=== PATIENT | female | born 1985 | race Caucasian/White ===

== ENCOUNTER 2018-09-02 17:45 | Emergency (ER) | payer OTHER ==
[2018-09-02 18:19] VITALS: BP 118/84
--- NOTE | 2018-09-02 19:35 | UC ---
Complaint Female HPI - HPI Summary HPI Summary: 2 weeks of pelvic pain and cramping along with low back pain. Denies any urinary symptoms. Feels bloated. Last sexual intercourse 3-4 days ago - unprotected. She had some postcoital spotting after that. Is in a monogamous relationship with the same male partner for several years. History of abnormal Paps and had colposcopy with biopsies about 6 weeks ago in [facility]. Today she noticed some grayish/brownish stringy vaginal discharge. Called her [facility] in [facility] and was advised that it might be Monsel's solution still being expelled. No fever. No nausea. - History Of Current Complaint Chief Complaint: UCGU Stated Complaint: PRIVATE ISSUE Time Seen by Provider: 09/02/18 19:15 Hx Obtained From: Patient Hx Last Menstrual Period: 08/15-08/19 Onset/Duration: Gradual Onset, Lasting Weeks, Still Present Timing: Constant Severity Initially: Moderate Severity Currently: Moderate Pain Intensity: 3 Pain Scale Used: 0-10 Numeric Character: Cramping Aggravating Factor(s): Nothing Alleviating Factor(s): Nothing Associated Signs And Symptoms: Positive: Back Pain, Vaginal Discharge. Negative : Fever, Nausea - Allergies/Home Medications Allergies/Adverse Reactions: Allergies Allergy/AdvReac Type Severity Reaction Status Date / Time No Known Allergies Allergy Verified 09/02/18 18:10 Home Medications: Home Medications NK [No Home Medications Reported] 09/02/18 [History Confirmed 09/02/18] PMH/Surg Hx/FS Hx/Imm Hx Previously Healthy: Yes - Surgical History Surgical History: Yes Surgery Procedure, Year, and Place: colyposcopy and cervical biopsy 2016, 2018 - Family History Known Family History: Positive: Non-Contributory - Social History Alcohol Use: Weekly Substance Use Type: Marijuana Substance Use Comment - Amount & Last Used: occasional Smoking Status (MU): Never Smoked Tobacco Review of Systems All Other Systems Reviewed And Are Negative: Yes Constitutional: Positive: Negative Respiratory: Positive: Negative Cardiovascular: Positive: Negative Gastrointestinal: Positive: Abdominal Pain Genitourinary: Positive: Negative Physical Exam Triage Information Reviewed: Yes Appearance: Well-Appearing, No Pain Distress, Well-Nourished Vital Signs: Initial Vital Signs Temp 99.7 F 09/02/18 18:11 Pulse 95 09/02/18 18:11 Resp 18 09/02/18 18:11 BP 118/84 09/02/18 18:11 Pulse Ox 100 09/02/18 18:11 Laboratory Tests 09/02/18 09/02/18 18:45 18:46 POC Urine Color Yellow POC Urine Clarity Clear POC Urine pH 8.0 POC Ur Specif [place] 1.015 POC Urine Protein Negative POC Ur Glucose (UA) Negative POC Urine Ketones Negative POC Urine Blood Negative POC Urine Nitrite Negative POC Urine Bilirubin Negative POC Urine Urobilinogen 0.2 POC U Leukocyte Esteras Negative POC Ur Test Negative Vital Signs Reviewed: Yes Eyes: Positive: Conjunctiva Clear ENT: Positive: Hearing grossly normal Neck: Positive: Supple Respiratory: Positive: No respiratory distress, No accessory muscle use Cardiovascular: Positive: Pulses Normal Abdomen Description: Positive: Nontender, Soft, Distended - MILDLY. Negative: CVA Tenderness (R), CVA Tenderness (L), Guarding Bowel Sounds: Positive: Present Pelvic Exam: Positive: External Exam Normal, Cervicitis - CERVIX FRIABLE. OOZING BLOOD AFTER LIGHT SWABBING, Discharge - THICK GREYISH DISCHARGE IN VAGINAL VAULT, Tender w/ Cervical Motion Musculoskeletal: Positive: No Edema Neurological: Positive: Alert Psychological: Positive: Age Appropriate Behavior Skin: Negative: Rashes Diagnostics - Radiology TRANSVAGINAL US Radiology Interpretation Completed By: Radiologist Summary of Radiographic Findings: In the right adnexa is a mass which measures approximate 4 cm in greatest. dimension. This mass has a hypoechoic area as well as a focal hyperechoic area. Punctate hyperechoic area with shadowing which may represent calcification. This may represent a dermoid/teratoma Complaint Female Dx - Course Course Of Treatment: CONCERN FOR PID GIVEN APPEARANCE OF DISCHARGE, FRIABLE CERVIX AND CERVICAL MOTION TENDERNESS. PT REPORTS BEING IN A MONOGAMOUS RELATIONSHIP FOR SEVERAL YEARS. IS NOT CONCERNED ABOUT STD. DECLINES EMPIRIC [place] TODAY. STATES SHE WILL ABSTAIN FROM ANY INTIMATE CONTACT. SWABBED FOR GONORRHEA, CHLAMYDIA, BV, YEAST AND TRICH. ULTRASOUND DONE AND SHOWS A POSSIBLE DERMOID/TERATOMA IN RIGHT ADNEXA. THIS IS LIKELY A SEPARATE ISSUE FROM HER CERVICITIS. REFERRAL FOR [employer] PROVIDED. - Differential Dx/Diagnosis Provider Diagnosis: Cervicitis, Teratoma Discharge - Sign-Out/Discharge Documenting (check all that apply): Patient Departure All imaging exams completed and their final reports reviewed: Yes - Discharge Plan Condition: Stable Disposition: HOME Patient Education Materials: Cervicitis (ED), Pelvic Pain in Women (ED) Referrals: Zana Roldan MD [Medical Doctor] - 2 Days Acacia Calderón MD [Medical Doctor] - 2 Days Additional Instructions: ULTRASOUND TODAY SHOWED A POSSIBLE DERMOID/TERATOMA IN YOUR RIGHT ADNEXA. THESE ARE GENERALLY BENIGN. CALL [facility] FIRST THING TOMORROW MORNING TO SCHEDULE A FOLLOW-UP APPOINTMENT TO FURTHER EVALUATE THIS FINDING. YOU WILL LIKELY BE SCHEDULED FOR MORE ADVANCED IMAGING SUCH A CT SCAN OR AN MRI. SWABS DONE TODAY TO EVALUATE FOR GONORRHEA, CHLAMYDIA, BACTERIAL VAGINOSIS, TRICHOMONAS, YEAST. YOU HAVE DECLINED PRESUMPTIVE TREATMENT FOR PID TODAY WHICH I THINK IS REASONABLE BASED ON YOUR LOW RISK HISTORY HOWEVER I WOULD RECOMMEND YOU ABSTAIN FROM ANY INTIMATE SEXUAL CONTACT UNTIL YOUR RESULTS ARE BACK. URINE TEST TODAY UNREMARKABLE. - Billing Disposition and Condition Condition: STABLE Disposition: Home
[2018-09-04 13:46] LABS: Trichomonas vaginalis Result Negative (Negative)
== END 2018-09-02 21:45 | disposition home or self-care (01) ==
LOC: UCEAST 17:45
DX: D39.8 Neoplasm of uncertain behavior of other specified female genital organs (principal)
CPT/HCPCS: 76830; 81003; 84702; 87480; 87491; 87510; 87591; 87661; 99201; G0463